=== PATIENT | male | born 1955 | race Caucasian/White ===

== ENCOUNTER → 2020-12-26 12:18 | Outpatient (CLI) | payer MEDICARE, OTHER, SELFPAY ==
--- NOTE | ~2020-12-26 | DEXA_ITS ---
Bone Density Report Name: Benjy Gale Age: 65 Sex: Male Ethnicity: White Date of : 1955 Indication: height loss; prior fracture; Referring Provider: Emilia Salazar Study: Bone densitometry was performed. Exam Date: December 26, 2020 Accession number: [id number] Bone Density: Region BMD T-score Z-score Classification AP Spine (L1, L2) 1.374 2.9 3.7 Normal Femoral Neck (Left) 0.985 0.4 1.5 Normal Total Hip (Left) 1.157 0.8 1.4 Normal Femoral Neck (Right) 0.962 0.2 1.3 Normal Total Hip (Right) 1.133 0.7 1.2 Normal Total Hip Mean 1.145 0.8 1.3 Normal World Health Organization criteria for BMD impression classify patients as: Normal (T-score at or above -1.0), Osteopenia (T-score between -1.0 and -2.5), or Osteoporosis (T-score at or below -2.5). 10-year Fracture Risk: FRAX not reported because: All T-scores for Spine Total, Hip Total, Femoral Neck at or above -1.0 Clinical Information Provided by Patient: Has had a low trauma fracture Has used the following medications: Vitamin D, Calcium, Testosterone Patient maximum height was 70 No regular weight bearing exercise Drinks caffeinated beverages Impression: The patient has normal bone mass. The patient has risk factors, including: previous fracture. Discussion: BONE DENSITY IS ABOVE THE MINIMUM DESIRABLE LEVEL AT ALL SKELETAL SITES TESTED. This patient?s bone mineral density is above the minimum desirable level (T-score -1.0 or better) at all sites measured. The patient should follow a healthful lifestyle (good nutrition with adequate calcium and vitamin D, and appropriate weight-bearing exercise). Follow-Up: Consider repeating this study in 5 years or sooner if there is some new clinical indication. Reported by: [facility] on 12/26/2020 12:55:00 PM. Reviewed, dictated and finalized at location AKatherine ESPAÑA
== END ==
PROVIDERS: PCP Family Medicine; Visit Provider Internal Medicine Endocrinology, Diabetes & Metabolism
DX: M81.0 Age-related osteoporosis without current pathological fracture (principal)
CPT/HCPCS: 77080

== ENCOUNTER → 2021-03-13 12:14 | Outpatient (CLI) | payer MEDICARE, OTHER, SELFPAY ==
--- NOTE | ~2021-03-13 | XR_ITS ---
XR knee LT 2V DATE: 03/13/2021 12:36 INDICATION: Left knee pain TECHNIQUE: Standing AP and lateral views COMPARISON: 01/27/2019 left knee FINDINGS: There is severe joint space and very severe periarticular spurring of the patella and femur at the patellofemoral joint consistent with severe osteoarthritis. There is particular spurring at the lateral compartment and mild to moderate loss of height at the me dial compartment joint space. No fracture or dislocation or joint effusion, radiopaque intra-articular loose body or chondrocalcino sis is noted. IMPRESSION: Tricompartment osteophytosis, diffuse severe at the patellofemoral compartment Reviewed, dictated and finalized at location B. 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
== END ==
PROVIDERS: PCP Family Medicine; Visit Provider Nurse Practitioner Family
DX: M25.562 Pain in left knee (principal)
CPT/HCPCS: 73560

== ENCOUNTER 2021-05-04 00:16 | Day surgery (SDC) | payer MEDICARE, OTHER, SELFPAY ==
[2021-04-21 14:52] VITALS: BMI 43.5
[2021-05-04 11:10] VITALS: BP 183/79; PULSE 62; RESP 20; TEMP 37.2; O2SAT 99; BMI 43.2
[2021-05-04 11:14] LABS: Glucose Point of Care 151 mg/dl (65-105)
--- NOTE | 2021-05-04 11:25 | WPDANESEPPF ---
Anes - Initial Pre Proc Eval Procedure: Operation Date: 05/04/21 12:30 Proposed Procedures p Screening Colonoscopy - Sushil Lopez MD Date/Time: 05/04/21 11:25 Surgeon: Sushil Lopez MD Pre Op Diagnosis: family hx of colon polyps Patient Data Age: 65 Gender: M Height: 1.73 m Weight: 129 kg Last Vital Signs Temp 99.0 F 05/04/21 11:10 Pulse 62 05/04/21 11:10 Resp 20 05/04/21 11:10 BP 183/79 H 05/04/21 11:10 Pulse Ox 99 05/04/21 11:10 Allergies Allergy/AdvReac Type Severity Reaction Status Date / Time lisinopril AdvReac Mild COUGH Verified 05/04/21 11:13 Home Medications Medication Instructions Recorded Confirmed Type cetirizine 10 mg tablet 5 mg PO DAILY PRN 03/23/19 04/21/21 History gabapentin 600 mg tablet 600 mg PO DAILY 03/23/19 04/21/21 History hydrocodone 10 mg-acetaminophen 1 tablet PO Q4-6H PRN 03/23/19 04/21/21 History 300 mg tablet tadalafil 5 mg tablet 5 mg PO DAILY 03/23/19 04/21/21 History aspirin 325 mg tablet 325 mg PO DAILY 07/28/19 04/21/21 History calcium carbonate 600 mg calcium 600 mg PO BID tablet 07/28/19 04/21/21 History (1,500 mg) tablet sildenafil 25 mg tablet 25 mg PO DAILY PRN 07/28/19 04/21/21 History albuterol sulfate 90 mcg/actuation 1 puff INHALATION Q4H PRN #8.5 g 02/08/20 04/21/21 Rx aerosol inhaler melatonin 10 mg capsule 20 mg PO HS cap 04/14/20 04/21/21 History atenolol 100 mg tablet See Rx Instructions .ROUTE 04/19/20 04/21/21 Rx .COMPLEX #90 tablet testosterone cypionate 200 mg/mL 150 mg IM Q14D ea 05/31/20 04/21/21 History intramuscular kit diclofenac sodium 1 % topical gel 4 g TOPICAL QID #300 g 06/30/20 04/21/21 Rx amlodipine 10 mg tablet See Rx Instructions .ROUTE 09/26/20 04/21/21 Rx .COMPLEX #90 tablet omeprazole 20 mg capsule,delayed 20 mg PO DAILY #180 cap 10/26/20 04/21/21 Rx release simvastatin 20 mg tablet 20 mg PO DAILY #90 tablet 11/08/20 04/21/21 Rx montelukast 10 mg tablet See Rx Instructions .ROUTE 12/30/20 04/21/21 History .COMPLEX PRN tablet losartan 100 mg tablet 100 mg PO DAILY #90 tablet 01/18/21 04/21/21 Rx fenofibrate 160 mg tablet See Rx Instructions .ROUTE 02/14/21 04/21/21 Rx .COMPLEX #90 tablet escitalopram oxalate 20 mg tablet See Rx Instructions .ROUTE 02/24/21 04/21/21 Rx .COMPLEX #90 tablet hydrochlorothiazide 25 mg tablet See Rx Instructions .ROUTE 03/01/21 04/21/21 Rx .COMPLEX #90 tablet levothyroxine 50 mcg tablet 50 mcg PO DAILY #90 tablet 03/01/21 04/21/21 Rx metformin 500 mg tablet See Rx Instructions .ROUTE 03/01/21 04/21/21 Rx .COMPLEX #180 tablet terazosin 1 mg capsule 1 mg PO DAILY #90 cap 03/01/21 04/21/21 Rx baclofen 10 mg tablet 10 mg PO TID PRN #90 tablet 04/10/21 04/21/21 Rx cholecalciferol (vitamin D3) 50 mcg PO DAILY 04/21/21 04/21/21 History [Vitamin D3] Laboratory Tests 05/04/21 11:04 POC Capillary Glucose 151 mg/dl H mg/dl (65-105) Patient hx anesthesia problems: none Family hx anesthesia problems: none Results Review: All pre-operative results and documents have been reviewed as part of the pre-operative evaluation. [facility] Past Medical History Medical History Anxiety Arthritis Back pain Blood disorder Cancer Diabetes Encounter for immunization H/O thyroid disease HLD (hyperlipidemia) Hypertension Hypothyroidism Obesity Surgical History Surgical History H/O colonoscopy (~2009) Hx of cholecystectomy Family History Family History Other Alcoholism Arthritis Cancer Congestive heart failure Diabetes mellitus Family history of lung cancer Hypertension Obesity Social History Social History Second hand tobacco smoke exposure: No Alcohol intake: never Substance use: never Gender identity
--- NOTE | 2021-05-04 11:25 | WPDGICN ---
Assessment and Plan Assessment and plan (1) Colon cancer screening: Code(s): Z12.11 - Encounter for screening for malignant neoplasm of colon Status: Acute Assessment and Plan: Patient presents for screening colonoscopy. Has been 7 years since last exam. His he has a family history of colon polyps in his son. (2) Family history of colonic polyps: Code(s): Z83.71 - Family history of colonic polyps Status: Acute Assessment and Plan: Patient's son had colon polyps it for this reason father is being evaluated every 5-7 years. GI Consult Note Consult date/time: 05/04/21 11:25 HPI: Benjy Gale is a 65 year old male Presents for screening colonoscopy. Patient's current weight appetite bowel movements are normal. He denies abdominal pain. He has had no bleeding. Family history is significant that his son has had colon polyps. Patient's most recent colonoscopy 7 years ago was unremarkable. He presents today for follow-up screening exam. Review of Systems Review of Systems: All systems reviewed & are unremarkable except as noted in HPI and below PMFSH Past Medical History Medical History Anxiety Arthritis Back pain Blood disorder Cancer Diabetes Encounter for immunization H/O thyroid disease HLD (hyperlipidemia) Hypertension Hypothyroidism Obesity Surgical History Surgical History H/O colonoscopy (~2009) Hx of cholecystectomy Family History Family History Other Alcoholism Arthritis Cancer Congestive heart failure Diabetes mellitus Family history of lung cancer Hypertension Obesity Social History Social History Second hand tobacco smoke exposure: No Alcohol intake: never Substance use: never Gender identity (if verbalized by the patient): Male Meds Home Medications and Allergies Home Medications Medication Instructions Recorded Confirmed Type cetirizine 10 mg tablet 5 mg PO DAILY PRN 03/23/19 04/21/21 History gabapentin 600 mg tablet 600 mg PO DAILY 03/23/19 04/21/21 History hydrocodone 10 mg-acetaminophen 1 tablet PO Q4-6H PRN 03/23/19 04/21/21 History 300 mg tablet tadalafil 5 mg tablet 5 mg PO DAILY 03/23/19 04/21/21 History aspirin 325 mg tablet 325 mg PO DAILY 07/28/19 04/21/21 History calcium carbonate 600 mg calcium 600 mg PO BID tablet 07/28/19 04/21/21 History (1,500 mg) tablet sildenafil 25 mg tablet 25 mg PO DAILY PRN 07/28/19 04/21/21 History albuterol sulfate 90 mcg/actuation 1 puff INHALATION Q4H PRN #8.5 g 02/08/20 04/21/21 Rx aerosol inhaler melatonin 10 mg capsule 20 mg PO HS cap 04/14/20 04/21/21 History atenolol 100 mg tablet See Rx Instructions .ROUTE 04/19/20 04/21/21 Rx .COMPLEX #90 tablet testosterone cypionate 200 mg/mL 150 mg IM Q14D ea 05/31/20 04/21/21 History intramuscular kit diclofenac sodium 1 % topical gel 4 g TOPICAL QID #300 g 06/30/20 04/21/21 Rx amlodipine 10 mg tablet See Rx Instructions .ROUTE 09/26/20 04/21/21 Rx .COMPLEX #90 tablet omeprazole 20 mg capsule,delayed 20 mg PO DAILY #180 cap 10/26/20 04/21/21 Rx release simvastatin 20 mg tablet 20 mg PO DAILY #90 tablet 11/08/20 04/21/21 Rx montelukast 10 mg tablet See Rx Instructions .ROUTE 12/30/20 04/21/21 History .COMPLEX PRN tablet losartan 100 mg tablet 100 mg PO DAILY #90 tablet 01/18/21 04/21/21 Rx fenofibrate 160 mg tablet See Rx Instructions .ROUTE 02/14/21 04/21/21 Rx .COMPLEX #90 tablet escitalopram oxalate 20 mg tablet See Rx Instructions .ROUTE 02/24/21 04/21/21 Rx .COMPLEX #90 tablet hydrochlorothiazide 25 mg tablet See Rx Instructions .ROUTE 03/01/21 04/21/21 Rx .COMPLEX #90 tablet levothyroxine 50 mcg tablet 50 mcg PO DAILY #90 tablet 03/01/21 04/21/21 Rx metformin 500 mg tablet S
[2021-05-04] MEDS: LACTATED RINGERS 1,000 ML 150 ML IV CONT (11:31)
[2021-05-04 11:56] VITALS: BP 155/89; PULSE 66; RESP 24; O2SAT 97
[2021-05-04 12:06] VITALS: BP 152/93; PULSE 64; RESP 16; O2SAT 98
[2021-05-04 12:16] VITALS: BP 166/89; PULSE 64; RESP 16; O2SAT 98
== END 2021-05-04 12:39 | disposition home or self-care (01) ==
PROVIDERS: PCP Family Medicine; Visit Provider Internal Medicine Gastroenterology
PROC: 0DJD8ZZ Inspection of Lower Intestinal Tract, Via Natural or Artificial Opening Endoscopic (ICD-10-PCS; CPT 45378; principal; 2021-05-04 12:30)
DX: Z12.11 Encounter for screening for malignant neoplasm of colon (principal); K64.8 Other hemorrhoids; Z83.71 Family history of colonic polyps; I10 Essential (primary) hypertension; E11.9 Type 2 diabetes mellitus without complications; E78.5 Hyperlipidemia, unspecified; E03.9 Hypothyroidism, unspecified; F41.9 Anxiety disorder, unspecified; E66.01 Morbid (severe) obesity due to excess calories; Z68.41 Body mass index [BMI] 40.0-44.9, adult; Z79.51 Long term (current) use of inhaled steroids; Z79.84 Long term (current) use of oral hypoglycemic drugs
CPT/HCPCS: G0105; 82948; J2704; J7120

== ENCOUNTER → 2021-07-04 11:17 | Outpatient (CLI) | payer MEDICARE, OTHER, SELFPAY ==
--- NOTE | ~2021-07-04 | MR_ITS ---
EXAMINATION: MR lumbar spine wo con DATE: 07/04/2021 11:55 INDICATION: Low back pain. TECHNIQUE: Magnetic resonance imaging (MRI) of the lumbar spine was performed without intravenous con trast. Sequences included sagittal T2-weighted FSE, sagittal T2-weighted FS FSE, sagittal T1-weighted FSE, and axial T2-weighted FSE. COMPARISON: Lumbar spine radiographs 04/22/2018 FINDINGS: There is 10 degrees dextroscoliosis of thoracolumbar spine. There is 3 mm retrolisthesis of L2 on L3 and L3 on L4 and 5 mm anterolisthesis of L4 on L5. There is mild chronic anterior wedging o f T11 vertebral body. There is mildly decreased disc height at L1-L2, moderately decreased disc heigh t at L2-L3 and L3-L4, and mildly decreased disc height at L4-L5 and L5-S1 with endplate remodeling. T here are changes of posterior fusion procedure at L4-L5 with pedicle screws. The distal spinal cord s ignal intensity is normal. The conus medullaris is at T12. The following disc levels are specifically discussed: L1-L2: The disc is bulging. There is moderate bilateral facet joint osteoarthritis. There is mild lef t neural foraminal stenosis. There is mild central canal stenosis. L2-L3: The disc is bulging and has an annular fissure. There is severe bilateral facet joint osteoart hritis. There is moderate bilateral neural foraminal stenosis. There is mild central canal stenosis. L3-L4: The disc is bulging and has an annular fissure. There is severe bilateral facet joint osteoart hritis. There is moderate bilateral neural foraminal stenosis. There is mild central canal stenosis. L4-L5: The disc does not extend beyond the endplate margin. There is severe bilateral facet joint ost eoarthritis. There is mild right and moderate left neural foraminal stenosis. There is no central can al stenosis. L5-S1: The disc is bulging. There is severe right and moderate left facet joint osteoarthritis. There is mild bilateral neural foraminal stenosis. There is mild central canal stenosis. IMPRESSION: 1. Moderate lumbar spondylosis. 2. Posterior fusion procedure at L4-L5. Reviewed, dictated and finalized at location A.
== END ==
PROVIDERS: PCP Family Medicine; Visit Provider Nurse Practitioner Family
DX: M47.896 Other spondylosis, lumbar region (principal); Z98.1 Arthrodesis status
CPT/HCPCS: 72148

== ENCOUNTER → 2022-07-26 15:11 | Outpatient (CLI) | payer MEDICARE, OTHER, SELFPAY ==
--- NOTE | ~2022-07-26 | XR_ITS ---
EXAMINATION: XR abdomen/kub 1V DATE: 07/26/2022 15:41 INDICATION: Microscopic hematuria TECHNIQUE: A supine view of the abdomen on 2 radiographs was obtained. COMPARISON: Lumbar spine radiographs dated 07/14/2018 and 04/22/2018 FINDINGS: Cholecystectomy clips in right upper quadrant. Slightly more cephalad is a 4.6 x 3.3 cm region or mas s with coarse calcifications which is of indeterminate etiology but likely benign as it can be seen d ating back to the lumbar spine radiograph dated 05/11/2015. Small phlebolith in the left hemipelvis. N o other suspicious calcifications are identified in the abdomen or pelvis. Moderate amount of stool s cattered throughout the colon. No dilated gas-filled bowel to suggest obstruction. Lung bases are feli ar. Heart size is normal. Mild thoracolumbar dextroscoliosis with bridging osteophytes at multiple le vels consistent with diffuse idiopathic skeletal hyperostosis (DISH). L4-5 posterior spinal fusion wi th bilateral vertical hyun and pedicle screw fixation. IMPRESSION: 1. No evident urolithiasis. 2. 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 Could consider CT for further evaluation as clinically indicated. Reviewed, dictated and finalized at location B. IMPRESSION: 1. No evident urolithiasis. 2. 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 Could consider CT for further evaluation as clinically indicated.
== END ==
PROVIDERS: PCP Family Medicine; Visit Provider Family Medicine
DX: R31.29 Other microscopic hematuria (principal)
CPT/HCPCS: 74018

== ENCOUNTER 2022-08-25 22:21 | Emergency (ER) | payer MEDICARE, OTHER, SELFPAY ==
[2022-08-25 22:23] VITALS: BP 198/86; PULSE 71; RESP 20; TEMP 36.5; O2SAT 97
--- NOTE | 2022-08-26 00:35 | ED.GENADULT ---
HPI - General Adult General Chief complaint: Wound/Laceration Stated complaint: wounds to L leg, diabetic Time Seen by Provider: 08/26/22 00:16 Source: patient Mode of arrival: ambulatory Limitations: no limitations History of Present Illness HPI narrative: This is a 66-year-old male with PMH of diabetes type 2, HTN who presents the ED with chief complaint wounds to the left lower leg and he is concerned for infection. Patient states that he was scratched by his dog over a week ago. He has since developed some redness of the leg. Denies pain. He also states that he was working outside a few days ago in the [employer] and may have gotten into poison claire. He reports the redness around the scratch seo has not gotten worse, however there is some drainage from one of the wounds in the back of the leg. Denies any fevers, chills, nausea, vomiting. Related Data Home Medications Medication Instructions Recorded Confirmed cetirizine 10 mg tablet (Zyrtec) 5 mg PO DAILY PRN allergies 03/23/19 07/26/22 hydrocodone 10 mg-acetaminophen 1 tablet PO Q4-6H PRN Pain 03/23/19 07/26/22 300 mg tablet tadalafil 5 mg tablet (Cialis) 5 mg PO DAILY 03/23/19 07/26/22 aspirin 325 mg tablet 325 mg PO DAILY 07/28/19 07/26/22 calcium carbonate 600 mg calcium 600 mg PO BID 07/28/19 07/26/22 (1,500 mg) tablet (Calcium) sildenafil 25 mg tablet 25 mg PO DAILY PRN other 07/28/19 07/26/22 melatonin 10 mg capsule 20 mg PO HS 04/14/20 07/26/22 testosterone cypionate 200 mg/mL 150 mg IM Q14D 05/31/20 07/26/22 intramuscular kit montelukast 10 mg tablet See Rx Instructions .Route 12/30/20 07/26/22 .COMPLEX PRN SOB cholecalciferol (vitamin D3) 50 50 mcg PO DAILY 04/21/21 07/26/22 mcg (2,000 unit) capsule (Vitamin D3) Allergies Allergy/AdvReac Type Severity Reaction Status Date / Time lisinopril AdvReac Mild COUGH Verified 07/26/22 14:28 Review of Systems Review of Systems: CONSTITUTIONAL: Denies fever, chills, or sweats. EYES: Denies visual changes, redness, or discharge. ENT: Denies rhinorrhea, congestion, sore throat, or otalgia. CARDIOVASCULAR: Denies chest pain, palpitations, or edema. RESPIRATORY: Denies cough or dyspnea. GASTROINTESTINAL: Denies abdominal pain, nausea, vomiting, or diarrhea. GENITOURINARY: Denies dysuria or hematuria. SKIN: See HPI MUSCULOSKELETAL: Denies back pain, joint pain, or myalgia. NEUROLOGIC: Denies headache, numbness, dizziness, or weakness. PSYCHIATRIC: Denies anxiety or depression. [facility] Past Medical History Medical History Anxiety Arthritis Back pain Blood disorder Callus of toe Cancer Diabetes Encounter for immunization H/O thyroid disease HLD (hyperlipidemia) Hypertension Hypothyroidism Obesity Peripheral neuropathy Surgical History Surgical History H/O colonoscopy (~2009) Hx of cholecystectomy Family History Family History Other Alcoholism Arthritis Cancer Congestive heart failure Diabetes mellitus Family history of lung cancer Hypertension Obesity Social History Social History Smoking status: Never smoker Second hand tobacco smoke exposure: No Alcohol intake: never Substance use: never Substance use type: does not use Lack of Transportation: No Lack of Food: Never True Current Housing: I Have Housing Concerned About Future Housing: No Difficulty Paying Gas/Electric Bills: No Difficulty Paying for Meds: No Currently Unemployed: No Education: Trade/Vocational Certificate Difficulty w/ Childcare or Family Care: No Living arrangements: with family Occupation/Education: retired Gender identity (if verbalized by the patient): Male Spiritual care concerns: No Agree to blood products: Yes Exam Narra
[2022-08-26 00:59] LABS: Glucose Point of Care 139 mg/dl (65-105)
[2022-08-26 01:04] VITALS: BP 150/88; PULSE 77; RESP 20; O2SAT 99
[2022-08-26] MEDS: CLINDAMYCIN HCL 150 MG CAP 450 MG PO (01:32)
== END 2022-08-26 01:44 | disposition home or self-care (01) ==
PROVIDERS: Emergency Provider Physician Assistant; PCP Family Medicine
DX: L03.116 Cellulitis of left lower limb (principal); I10 Essential (primary) hypertension; E78.5 Hyperlipidemia, unspecified; E03.9 Hypothyroidism, unspecified; E11.42 Type 2 diabetes mellitus with diabetic polyneuropathy; F41.9 Anxiety disorder, unspecified; E66.9 Obesity, unspecified; Z68.41 Body mass index [BMI] 40.0-44.9, adult; Z79.82 Long term (current) use of aspirin; Z79.84 Long term (current) use of oral hypoglycemic drugs; Z79.51 Long term (current) use of inhaled steroids
CPT/HCPCS: 82948; 87070; 87205; 99283; A9270

== ENCOUNTER 2024-02-10 16:22 | Outpatient (CLI) | payer MEDICARE, OTHER, SELFPAY ==
--- NOTE | ~2024-02-10 | XR_ITS ---
EXAMINATION: XR hand RT min 3V DATE: 02/10/2024 17:06 INDICATION: Localized swelling, mass and lump, right hand. TECHNIQUE: 3 views of right hand were obtained. COMPARISON: None. FINDINGS: Alignment is normal. No fracture. There is severe osteoarthritis of triscaphe joint and fir st carpometacarpal joint. There is mild osteoarthritis of most of the metacarpophalangeal joints and interphalangeal joints. There is moderate osteoarthritis of second and third metacarpophalangeal join ts and second distal interphalangeal joint. IMPRESSION: 1. Polyarticular osteoarthritis. 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
[2024-02-10 17:53] LABS: Alanine Aminotransferase 73 U/L (6-50); Alkaline Phosphatase 57 U/L (38-126); Anion Gap 8 mmol/L (4-12); Aspartate Amino Transferase 76 U/L (17-59); Bilirubin,Total 0.8 mg/dL (0.2-1.3); Blood Urea Nitrogen 28 mg/dL (9-20); Calcium 8.9 mg/dL (8.4-10.2); Carbon Dioxide 26 mmol/L (22-30); Chloride 105 mmol/L (98-107); Estimated Glomerular Filt Rate > 60; Glucose 164 mg/dL (65-110); Potassium 3.4 mmol/L (3.4-5.0); Sodium 139 mmol/L (137-145)
== END 2024-02-10 16:23 | disposition home or self-care (01) ==
LOC: ANHLAB 16:28
PROVIDERS: PCP Family Medicine; Visit Provider Family Medicine
DX: G56.21 Lesion of ulnar nerve, right upper limb (principal); M19.041 Primary osteoarthritis, right hand; G56.03 Carpal tunnel syndrome, bilateral upper limbs; R74.8 Abnormal levels of other serum enzymes; E11.9 Type 2 diabetes mellitus without complications
CPT/HCPCS: 36415; 73130; 80048; 80076

== ENCOUNTER 2024-03-11 14:48 | Outpatient (CLI) | payer MEDICARE, OTHER, SELFPAY ==
[2024-03-11 15:48] LABS: Hematocrit 34.7 % (42.0-52.0); Hemoglobin 11.3 g/dL (14.0-18.0); Mean Corpuscular HGB Conc 32.6 g/dl (32-36); Mean Corpuscular Hemoglobin 30.2 pg (26-34); Mean Corpuscular Volume 92.8 fl (80-100); Mean Platelet Volume 9.9 fl (7.4-10.4); Platelet Count Result 226 k/mm3 (150-375); Red Blood Count 3.74 M/mm3 (4.6-6.20); Red Cell Distribution Width 17.3 % (11.5-14.5); White Blood Count 5.7 K/mm3 (4.5-10.0)
[2024-03-11 16:18] LABS: Immunoglobulin G 1337 mg/dL (700-1600)
[2024-03-11 16:26] LABS: Iron 55 ug/dL (49-181)
[2024-03-11 16:35] LABS: Percent Iron Saturation 16 % (20-50)
[2024-03-12 08:24] LABS: Alpha-1-Antitrypsin, QN 192 mg/dL (83-199); Ceruloplasmin 22 mg/dL (14-30)
[2024-03-12 15:38] LABS: GGT 30 U/L (3-70)
[2024-03-18 05:29] LABS: LKM 1 Antibody <=20.0 U (<=20.0)
[2024-03-18 22:09] LABS: Actin Antibody (IgG) <20 U (<20)
[2024-03-19 14:28] LABS: Mitochondrial (M2) Ab (IgG) <20.0 U
[2024-03-23 13:13] LABS: ALT 32 U/L (9-46); Alpha-2-Macroglobulin 260 mg/dL (106-279); Apolipoprotein A1 124 mg/dL (94-176); Fibrosis Score 0.66; Fibrosis Stage F3; GGT 32 U/L (3-70); Haptoglobin 67 mg/dL (43-212); Necroinflammat Act Grade A0-A1; Reference ID 5266955; Total Bilirubin 0.6 mg/dL (0.2-1.2)
== END 2024-03-11 14:49 | disposition home or self-care (01) ==
PROVIDERS: PCP Family Medicine; Visit Provider Nurse Practitioner
DX: R74.8 Abnormal levels of other serum enzymes (principal)
CPT/HCPCS: 36415; 81596; 82103; 82390; 82728; 82784; 82977; 83520; 83540; 83550; 85027; 86038; 86039; 86364; 86376

== ENCOUNTER 2024-03-23 12:39 | Outpatient (CLI) | payer MEDICARE, OTHER, SELFPAY ==
--- NOTE | 2024-03-23 14:20 | NEURO_ITS ---
Impression: # Complains of numbness of hands, right more than left. Known diabetic. ? # Bilateral Carpal Tunnel Syndrome, left more than right. ? 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 ? 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 # Abnormal needle/EMG exam. Nerve Conduction Studies Anti Sensory Summary Table ?Stim Site NR Peak (ms) P-T Amp (?V) Site1 Site2 Delta-P (ms) Dist (cm) Matt (m/s) Left Median Anti Sensory (2-3nd Digit) Wrist ? 5.6 9.4 Wrist 2-3nd Digit 5.6 14.0 25 Wrist ? 6.1 18.0 Wrist 2-3nd Digit 5.6 14.0 25 Right Median Anti Sensory (2-3nd Digit) Wrist ? 4.1 22.3 Wrist 2-3nd Digit 4.1 14.0 34 Wrist ? 4.0 35.1 Wrist 2-3nd Digit 4.1 14.0 34 Left Radial Anti Sensory (Base 1st Digit) Wrist ? 1.8 37.3 Wrist Base 1st Digit 1.8 0.0 Right Radial Anti Sensory (Base 1st Digit) Wrist ? 2.6 11.0 Wrist Base 1st Digit 2.6 0.0 Left Ulnar Anti Sensory (5th Digit) Wrist ? 2.9 38.6 Wrist 5th Digit 2.9 14.0 48 Right Ulnar Anti Sensory (5th Digit) Wrist ? 2.9 21.2 Wrist 5th Digit 2.9 14.0 48 Motor Summary Table ?Stim Site NR Onset (ms) O-P Amp (mV) Site1 Site2 Delta-0 (ms) Dist (cm) Matt (m/s) Left Median Motor (Abd Poll Brev) Wrist ? 6.3 1.6 Elbow Wrist 5.3 30.0 57 Elbow ? 11.6 2.0 Right Median Motor (Abd Poll Brev) Wrist ? 4.8 1.9 Elbow Wrist 5.8 29.0 50 Elbow ? 10.6 1.6 Left Ulnar Motor (Abd Dig Minimi) Wrist ? 2.8 5.5 A Elbow Wrist 8.0 32.0 40 A Elbow ? 10.8 2.4 B Elbow Wrist 4.7 22.0 47 B Elbow ? 7.5 0.3 Right Ulnar Motor (Abd Dig Minimi) Wrist ? 3.5 2.1 A Elbow Wrist 0.0 A Elbow NR B Elbow Wrist 3.8 21.0 55 B Elbow ? 7.3 2.1 F Wave Studies ?NR F-Lat (ms) L-R F-Lat (ms) Left Median (Mrkrs) (Abd Poll Brev) ? 33.00 0.24 Right Median (Mrkrs) (Abd Poll Brev) ? 32.77 0.24 Left Ulnar (Mrkrs) (Abd Dig Min) ? 33.31 1.81 Right Ulnar (Mrkrs) (Abd Dig Min) ? 31.50 1.81 EMG ?Side Muscle Nerve Root Ins Act Fibs Amp Dur Recrt Comment Right 1stDorInt Ulnar C8-T1 Nml Nml Nml >12ms +4 Right Ext Indicis Radial (Post Int) C7-8 Nml Nml Nml Nml Nml Right Ext Digitorum Radial (Post Int) C7-8 Nml Nml Nml Nml Nml Right BrachioRad Radial C5-6 Nml Nml Nml Nml Nml Right PronatorTeres Median C6-7 Nml Nml Nml Nml Nml Right Abd Poll Brev Median C8-T1 Nml Nml Nml >12ms +1 Right ABD Dig Min Ulnar C8-T1 Nml Nml Nml >12ms +3 Left 1stDorInt Ulnar C8-T1 Nml Nml Nml >12ms +4 Left Ext Indicis Radial (Post Int) C7-8 Nml Nml Nml Nml Nml Left Ext Digitorum Radial (Post Int) C7-8 Nml Nml Nml Nml Nml Left BrachioRad Radial C5-6 Nml Nml Nml Nml Nml Left PronatorTeres Median C6-7 Nml Nml Nml Nml Nml Left Abd Poll Brev Median C8-T1 Nml Nml Nml >12ms +2 Left ABD Dig Min Ulnar C8-T1 Nml Nml Nml >12ms +3 Right Biceps Musculocut C5-6 Nml Nml Nml Nml Nml Right Triceps Radial C6-7-8 Nml Nml Nml Nml Nml Right Deltoid Axillary C5-6 Nml Nml Nml Nml Nml Left Biceps Musculocut C5-6 Nml Nml Nml Nml Nml Left Triceps Radial C6-7-8 Nml Nml Nml Nml Nml Left Deltoid Axillary C5-6 Nml Nml Nml Nml Nml MTDD
== END 2024-03-23 12:40 | disposition home or self-care (01) ==
LOC: ANHNEURO 12:40
PROVIDERS: PCP Family Medicine; Visit Provider Plastic Surgery
DX: G56.03 Carpal tunnel syndrome, bilateral upper limbs (principal); G56.23 Lesion of ulnar nerve, bilateral upper limbs; E11.9 Type 2 diabetes mellitus without complications; R94.131 Abnormal electromyogram [EMG]
CPT/HCPCS: 95886; 95911

== ENCOUNTER 2024-04-21 13:47 | Emergency (ER) | payer MEDICARE, OTHER, SELFPAY ==
--- NOTE | 2024-04-21 13:50 | ED.URI ---
HPI - URI/Sore Throat General Chief Complaint: Nausea/Vomiting/Diarrhea Stated Complaint: Diarrhea/Sinus/Weakness Time Seen by Provider: 04/21/24 13:50 Source: patient Mode of arrival: ambulatory Limitations: no limitations History of Present Illness HPI Narrative: Benjy is a 68-year-old male patient presenting to the clinic today with complaints of diarrhea, sinus congestion, and feeling weak x2 days. States he has had 2 episodes of diarrhea. Has taken some Pepto for this. Reports some cough and congestion. Denies any vomiting or abdominal pain. He denies any fever MD elicited complaint: nasal congestion and other (Weakness, diarrhea) Related Data Home Medications ?Medication ?Instructions ?Recorded ?Confirmed ?Last Taken ?Type cetirizine 10 mg tablet (Zyrtec) 5 mg PO DAILY PRN allergies 03/23/19 03/11/24 05/03/21 History hydrocodone 10 mg-acetaminophen 1 tablet PO Q4-6H PRN Pain 03/23/19 03/11/24 05/03/21 History 300 mg tablet tadalafil 5 mg tablet (Cialis) 5 mg PO DAILY 03/23/19 03/11/24 05/03/21 History aspirin 325 mg tablet 325 mg PO DAILY 07/28/19 03/11/24 05/03/21 History calcium carbonate (Calcium 600) 600 mg PO BID 07/28/19 03/11/24 05/03/21 History melatonin 10 mg capsule 20 mg PO HS 04/14/20 03/11/24 05/03/21 History montelukast 10 mg tablet See Rx Instructions .Route 12/30/20 03/11/24 05/03/21 History .COMPLEX PRN SOB cholecalciferol (vitamin D3) 50 50 mcg PO DAILY 04/21/21 03/11/24 05/03/21 History mcg (2,000 unit) capsule (Vitamin D3) folic acid 1 mg tablet 1 mg PO DAILY 08/31/22 03/11/24 Unknown History methotrexate sodium 2.5 mg tablet 12.5 mg PO WEEKLY 08/31/22 03/11/24 Unknown History testosterone cypionate 200 mg/mL 300 mg IM Q14D 08/31/22 03/11/24 Unknown History intramuscular kit Allergies Allergy/AdvReac Type Severity Reaction Status Date / Time lisinopril AdvReac Mild COUGH Verified 02/05/24 13:36 Review of Systems Review of Systems: Pertinent positives per HPI. Patient denies any fever, chills, rash, headache, visual changes, dizziness, shortness of breath, chest pain, palpitations, vomiting, constipation, abdominal pain, or any urinary issues. [facility] Past Medical History Medical History Ankylosing spondylitis Callus of toe Peripheral neuropathy Encounter for immunization H/O thyroid disease Obesity Cancer Blood disorder Back pain Arthritis Anxiety Hypothyroidism Diabetes Hypertension HLD (hyperlipidemia) Surgical History Surgical History H/O colonoscopy (~2009) Hx of cholecystectomy Family History Family History Other Alcoholism Arthritis Cancer Congestive heart failure Diabetes mellitus Family history of lung cancer Hypertension Obesity Social History Social History Smoking status: Never smoker Second hand tobacco smoke exposure: No Alcohol intake: never Substance use: never Substance use type: does not use Lack of Transportation: No Lack of Food: Never True Current Housing: I Have Housing Concerned About Future Housing: No Difficulty Paying Gas/Electric Bills: No Difficulty Paying for Meds: No Currently Unemployed: No Education: Trade/Vocational Certificate Difficulty w/ Childcare or Family Care: No Living arrangements: with family Occupation/Education: retired Gender identity (if verbalized by the patient): Male Spiritual care concerns: No Agree to blood products: Yes Comments At the time of my signature, I reviewed and agree with the nursing past medical, surgical, social, and family history. There is no relevant family history pertinent to the patient complaint. Exam Narrative: General: Well-developed, morbidly obese, acutely ill-appearing Head: Normocephalic, atraumatic Eyes: Pupils equally round and reactive to light bilaterally, EOM intact, sclera and conjunctive clear, no discharge, lids normal Ears: TMs intact and congested, ear canals clear, no drainage, grossly hearing normal. Nose: Nares patent, clear nasal discharge, no inflammation, no sinus tenderness. Mouth: Oropharynx without lesions or masses, good dentition, MMM. Postnasal drip Neck: Supple, trachea midline, no enlargement of anterior or posterior cervical nodes, no thyroid masses or goiter palpable. Cardio: Regular rate and rhythm, s1 and s2 normal, no murmur appreciated. Resp: Lung sounds diminished in the bases, no rhonchi, rales, wheezing or rubs Course Course Emergency Course: Portions of this record may have been created with voice recognition software. Level of Care: Express Care Visit Vital Signs Vital signs: Vital Signs Temperature 36.7 C 04/21/24 14:03 Pulse Rate 94 04/21/24 14:03 Respiratory Rate 20 04/21/24 14:03 Blood Pressure 135/82 04/21/24 14:03 Pulse Oximetry 95 04/21/24 14:03 Oxygen Delivery Room Air 04/21/24 14:03 Temperature 36.7 C 04/21/24 14:03 Pulse Rate 94 04/21/24 14:03 Respiratory Rate 20 04/21/24 14:03 Blood Pressure 135/82 04/21/24 14:03 Pulse Oximetry 95 04/21/24 14:03 Oxygen Delivery Room Air 04/21/24 14:03 Vital signs reviewed MDM - URI/Sore Throat MDM Narrative Medical decision making narrative: At the time of visit patient is resting comfortably on the exam table. Patient appears to be nontoxic. Labs: Influenza and COVID testing was performed. Influenza the was positive for influenza A. COVID testing was negative. Plan: Patient has influenza A. Prescription for Tamiflu was sent to the pharmacy. Risks and benefits of this medication was explained to the patient he voiced understanding I would like to have the medication. Supportive measures were discussed with the patient and they voiced understanding discharge instructions and agrees to treatment plan. Return precautions reviewed Differential Diagnosis Differential diagnosis: Likely upper respiratory infection, otitis media, sinusitis, viral infection, bronchitis, influenza, pharyngitis and other (COVID) Discharge Plan Discharge Clinical Impression: Influenza A Patient Disposition: Home, Self-Care Condition: Stable Instructions: Antibiotic Form, Influenza (ED) Additional Instructions: Take prescription medications only as prescribed-Tamiflu May take Imodium as needed for diarrhea as long as there is no blood in your stools May take Coricidin HBP for cold/flu symptoms Increase fluids and stay well hydrated Tylenol/motrin for pain/fever Flonase and OTC antihistamines as directed Vicks vapor rub to open sinuses Sinus rinses for congestion Cepacol spray, cough drops, throat lozenges, warm tea with honey/lemon, gargle salt water to soothe throat BRAT diet for diarrhea Clear liquids x 24 hours then advance as tolerated for nausea/vomiting Go to the ED if you develop a worsening in your condition- high fever not controlled by Tylenol or Motrin, dehydration, weakness, lethargy, shortness of breath, or chest pain. Follow up with your PCP in 3-5 days if symptoms persist. Patient Language: [place] Prescriptions: New oseltamivir [Tamiflu] 75 mg capsule 75 mg PO BID 5 Days Qty: 10 0RF No Action cetirizine [Zyrtec] 10 mg tablet 5 mg PO DAILY PRN (Reason: allergies) tadalafil [Cialis] 5 mg tablet 5 mg PO DAILY hydrocodone-acetaminophen 10-300 mg tablet 1 tablet PO Q4-6H PRN (Reason: Pain) testosterone cypionate 200 mg/mL kit 300 mg IM Q14D methotrexate sodium 2.5 mg tablet 12.5 mg PO WEEKLY folic acid 1 mg tablet 1 mg PO DAILY benzonatate 200 mg capsule 200 mg PO TID PRN (Reason: cough) Qty: 20 0RF aspirin 325 mg tablet 325 mg PO DAILY calcium carbonate [Calcium 600] 600 mg calcium (1,500 mg) tablet 600 mg PO BID melatonin 10 mg capsule 20 mg PO HS montelukast 10 mg tablet See Rx Instructions .ROUTE .COMPLEX PRN (Reason: SOB) Dose Instruction: TAKE 1 TABLET BY MOUTH EVERY DAY Rx Instructions: TAKE 1 TABLET BY MOUTH EVERY DAY PRN; (DME) RSV vaccine See Rx Instructions .Route .MEDSUPPLY Qty: 1 0RF Rx Instructions: Vaccination ketoconazole 2 % cream 1 applic topical BID Qty: 60 0RF hydralazine 100 mg tablet 100 mg PO BID Qty: 60 2RF (DME) True Metrix Glucose Test Strip Strip See Rx Instructions .Route Qty: 100 11RF Rx Instructions: As directed BID cholecalciferol (vitamin D3) [Vitamin D3] 50 mcg (2,000 unit) Capsule 50 mcg PO DAILY omeprazole 20 mg capsule,delayed release(DR/EC) See Rx Instructions .ROUTE .COMPLEX Qty: 90 2RF Dose Instruction: TAKE 1 CAPSULE BY MOUTH EVERY DAY Rx Instructions: TAKE 1 CAPSULE BY MOUTH EVERY DAY albuterol sulfate [Ventolin HFA] 90 mcg/actuation HFA aerosol inhaler 1 puff INHALATION Q4H PRN (Reason: shortness of breath or wheezing) Qty: 8.5 2RF diclofenac sodium 1 % gel 4 g topical QID Qty: 300 3RF Rx Instructions: apply to single knee, ankle, foot; for foot includes sole/toes/top of foot losartan [Cozaar] 100 mg tablet 100 mg PO DAILY Qty: 90 3RF terazosin 1 mg capsule See Rx Instructions .ROUTE .COMPLEX Qty: 90 3RF Dose Instruction: TAKE 1 CAPSULE BY MOUTH EVERY DAY Rx Instructions: TAKE 1 CAPSULE BY MOUTH EVERY DAY levothyroxine 50 mcg tablet 50 mcg PO DAILY Qty: 90 1RF amlodipine 10 mg tablet See Rx Instructions .ROUTE .COMPLEX Qty: 90 3RF Dose Instruction: TAKE 1 TABLET BY MOUTH EVERY DAY Rx Instructions: TAKE 1 TABLET BY MOUTH EVERY DAY simvastatin 20 mg tablet 20 mg PO DAILY Qty: 90 3RF fenofibrate 160 mg tablet See Rx Instructions .ROUTE .COMPLEX Qty: 90 1RF Dose Instruction: TAKE 1 TABLET BY MOUTH EVERY DAY Rx Instructions: TAKE 1 TABLET BY MOUTH EVERY DAY escitalopram oxalate 20 mg tablet See Rx Instructions .ROUTE .COMPLEX Qty: 90 1RF Dose Instruction: TAKE 1 TABLET BY MOUTH EVERY DAY Rx Instructions: TAKE 1 TABLET BY MOUTH EVERY DAY nystatin 100,000 unit/gram cream 1 applic topical BID Qty: 30 1RF Ozempic 0.25 mg or 0.5 mg (2 mg/3 mL) pen injector 0.5 mg subcut WEEKLY Qty: 3 0RF metformin 500 mg tablet See Rx Instructions .ROUTE .COMPLEX Qty: 180 3RF Dose Instruction: TAKE 1 TABLET TWICE A DAY Rx Instructions: TAKE 1 TABLET TWICE A DAY hydrochlorothiazide 25 mg tablet See Rx Instructions .ROUTE .COMPLEX Qty: 90 3RF Dose Instruction: TAKE 1 TABLET BY MOUTH EVERY DAY Rx Instructions: TAKE 1 TABLET BY MOUTH EVERY DAY baclofen 20 mg tablet 20 mg PO TID PRN (Reason: pain) Qty: 90 1RF Follow-up/Referrals: Rae Dumas MD [Primary Care Provider] - Time of Disposition: 14:16 Quality NIHSS Nursing Documentation ED NIHSS nursing documentation: reviewed/agree
[2024-04-21 14:03] VITALS: BP 135/82; PULSE 94; RESP 20; TEMP 36.7; O2SAT 95
[2024-04-21 14:24] LABS: EDCOVIDSCREEN Negative (Negative); EDINFLUASCREEN Positive (Negative); EDINFLUBSCREEN Negative (Negative)
== END 2024-04-21 14:30 | disposition home or self-care (01) ==
PROVIDERS: Emergency Provider Nurse Practitioner Family; PCP Family Medicine
DX: J10.1 Influenza due to other identified influenza virus with other respiratory manifestations (principal); Z20.822 Contact with and (suspected) exposure to COVID-19; E11.42 Type 2 diabetes mellitus with diabetic polyneuropathy; I10 Essential (primary) hypertension; E78.5 Hyperlipidemia, unspecified; M19.90 Unspecified osteoarthritis, unspecified site; E66.9 Obesity, unspecified; M45.9 Ankylosing spondylitis of unspecified sites in spine; Z85.9 Personal history of malignant neoplasm, unspecified; Z79.82 Long term (current) use of aspirin
CPT/HCPCS: 87426; 87804; 99213; G0463

== ENCOUNTER 2024-06-03 12:04 | Outpatient (CLI) | payer MEDICARE, OTHER, SELFPAY ==
[2024-06-03 12:52] LABS: Alanine Aminotransferase 18 U/L (6-50); Alkaline Phosphatase 52 U/L (38-126); Aspartate Amino Transferase 26 U/L (17-59); Bilirubin,Total 0.4 mg/dL (0.2-1.3)
--- OUTSIDE RECORDS SUMMARY | 2024-06-03 13:38 | XMS_ITS | Clinical Summary ---
Author Organization [facility] Address [address] [place] [address] Care Team Providers Care Adjunct Sociology Professor Name Role Phone Rae Dumas MD Primary Care Provider [phone] Allergies Active Allergy Reactions Criticality Noted Date Comments Kiet Inhibitors Cough Low Lisinopril Cough Low Quinapril Hcl Unknown 07/03/2011 Medications amLODIPine (NORVASC) 10 mg tablet daily. Active aspirin 325 mg tablet daily. Active atenolol (TENORMIN) 100 mg tablet daily Active tadalafiL (CIALIS) 5 mg tablet daily 7 Active loratadine (CLARITIN) 10 mg tablet take tablet prn 7 Active hydroCHLOROthia zide (HYDRODIURIL) 25 mg tablet daily Active HYDROcodone-kiet taminophen (NORCO) 10-325 mg per tabletIndicatio ns:Pain take tablet prn 7 Active levothyroxine (SYNTHROID, LEVOTHROID) 50 mcg tablet daily. 7 Active losartan (COZAAR) 100 mg tablet daily. Active melatonin 10 mg capsule daily 7 Active metFORMIN (GLUCOPHAGE) 500 mg tablet every 12 hours. Active simvastatin (ZOCOR) 20 mg tablet daily. 7 Active montelukast (SINGULAIR) 10 mg tablet as needed Active testosterone cypionate (DEPO-TESTOTERO NE) 200 mg/mL injection Inject into the muscle as instructed every 14 (fourteen) days 7 Active cholecalciferol (VITAMIN D-3) 5,000 unit tablet TAKE 1 TABLET 7 Active omeprazole (PriLOSEC) 20 mg capsule TAKE TWO CAPSULE BY MOUTH DAILY 3 8 Active terazosin (HYTRIN) 1 mg capsule Take 1 capsule (1 mg total) by mouth daily 3 8 Active albuterol HFA (PROVENTIL HFA,VENTOLIN HFA,PROAIR HFA) 90 mcg/actuation inhaler Inhale 2 puffs 2 (two) times a day as needed for wheezing or shortness of breath Active escitalopram (LEXAPRO) 20 mg tablet daily 0 9 Active chlorhexidine (PERIDEX) 0.12 % solution as needed Active diclofenac sodium (VOLTAREN) 1 % gel Voltaren 1 % topical gel APPLY 2 GRAMS TO AFFECTED AREA(S) 4 TIMES PER DAY Active sildenafil, antihypertensiv e, (REVATIO) 20 mg tablet sildenafil (antihypertensi ve) 20 mg tablet TAKE 1-5 TABLET BY MOUTH DAILY, NEEDED Active fenofibrate (TRIGLIDE) 160 mg tablet daily 0 Active BD Luer-Jannette Syringe 3 mL 21 gauge x 1 1/2 syringe USE ONE SYRINGE NEEDED 0 Active Narcan 4 mg/actuation spray,non-aeros ol USE DIRECTED NEEDED 0 Active baclofen (LIORESAL) 10 mg tablet 3 (three) times a day 1 Active folic acid (FOLVITE) 1 mg tablet Take 1 tablet (1,000 mcg total) by mouth daily 3 Active ketoconazole (NIZORAL) 2 % cream Apply topically 2 (two) times a day 3 Active methotrexate 2.5 mg tablet TAKE 5 TABLETS IN THE MORNING AND 5 TABS IN EVENING ONCE WEEKLY 3 Active nystatin cream Apply topically as needed 3 Active mv-min/folic/K1 /lycopen/lutein (CENTRUM SILVER MEN ORAL) Take by mouth Active glucosamine-cho ndroitin 500-400 mg tablet Take 1 tablet by mouth 2 (two) times a day 1200 MG Active acetaminophen (TYLENOL ARTHRITIS ORAL) Take by mouth daily Active Active Problems Problem Noted Date Diagnosed Date Monoclonal gammopathy 08/18/2019 Closed fracture of shaft of right humerus 2018 ED (erectile dysfunction) of organic origin 04/25 Hypothyroidism 05/08/2016 Diabetes mellitus 05/08/2016 Hyperlipidemia 05/08/2016 Hypertension 05/08/2016 Incontinence 05/08/2016 Malignant melanoma 05/08/2016 Testosterone deficiency 05/08/2016 Benign neoplasm of pituitary gland 03/15/2016 Immunizations Immunization Administration Dates Next Due Influenza, Quadrivalent, Spl it, Preservative Free, Intramuscular 12/25/2017 Influenza, Trivalent, Preser vative Free, Intramuscular 11/23/2016,02/23/2016,12/24/2015,12/20 Pneumococcal Conjugate PCV 13 01/16/2019 Surgical History Surgery Date Site/Laterality Comments NM CHOLECYSTECTOMY KNEE SURGERY ACHILLES TENDON REPAIR 03/25/2018 - 03/24/2019 POSTERIOR SPINAL FUSION Medical History Medical History Date Comments Arthritis Cancer (HCC) Cerebral palsy (HCC) Diabetes mellitus (HCC) Neuropathy in diabetes (HCC) Gastric reflux Hypercholesteremia Hypertension Sleep apnea Hypogonadism male 2018 Skin cancer (melanoma) (HCC) Benign tumor of pituitary gland (HCC) Abnormal gait Family History Medical History Relation Name Comments Alcohol abuse Brother Heart disease Brother Hypertension Father Arthritis Mother Cancer Mother Diabetes Mother Heart disease Mother Heart disease Sister Relation Name Status Comments Brother Father Mother Sister Social History Tobacco Use Types Packs/Day Years Used Date Smoking Tobacco: Never Passive Smoke Exposure: Never Smokeless Tobacco: Never Tobacco Cessation:Counseling Given: Not Answered Alcohol Use Standard Drinks/Week Comments Yes 0 (1 standard drink = 0.6 oz pur e alcohol) social Overall Financial Resource Strain (CARDIA) Answe r Date Recorded Difficulty of Paying Living Expenses Patient dec lined 11/03/2018 Hunger Vital Sign Answer Date Recorded Worried About Running Out of Food in the Last Ye ar Patient declined 11/03/2018 Ran Out of Food in the Last Year Patient decline d 11/03/2018 PRAPARE - Transportation Answer Date Re corded Lack of Transportation (Medical) Patient decline d 11/03/2018 Lack of Transportation (Non-Medical) Patient dec lined 11/03/2018 Sex and Gender Information Value Date Recorded Sex Assigned at Not on file 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 Gender Identity Not on file Sexual Orientation Not on file Occupation Industry Job Start Date Job End Date Retired Not on file Not on file Not on file Obstetrics History Last Filed Vital Signs Vital Sign Reading Time Taken Comments Blood Pressure 172/78 11/05/2023 1:26 PM CDT Pulse 66 11/05/2023 1:23 PM CDT Temperature 36.6 C (97.9 F) 11/05/2023 1:23 PM CDT Respiratory Rate - - Oxygen Saturation 96% 11/05/2023 1:23 PM CDT Inhaled Oxygen Concentration - - Weight 129.9 kg (286 lb 6.4 oz) 11/05/2023 1:23 PM CDT Height 172.7 cm (5' 8 ) 11/05/2023 1:23 PM CDT Body Mass Index 43.55 11/05/2023 1:23 PM CDT Plan of Treatment Health Maintenance Due Date Last Done Comments Albumin Creatinine Ratio, Urine 1953 Colon Cancer Screening-Colonoscopy 1953 Depression Screening 1953 Fall Risk Assessment 1953 Hemoglobin A1C 1953 Hepatitis C Screening 1953 Dilated Eye Exam 1953 Foot Exam 1953 Lipid Panel 1953 DTaP/Tdap/Td Vaccine (1 - Tdap) 1964 Hepatitis B Screening 10/18/1971 Zoster Vaccine (1 of 2) 1972 Well Visit 65+ 2018 Pneumococcal vaccine 65+ (2 of 2 - PPSV23) 03/13/2019 01/16/2019 Influenza Vaccine (#1) 2023 8, 11/23/2016, 02/23/2016, Additional history exists eGFR 11/04/2024 11/05/2023, 08/0 10/2022, 09/05/2021, Additional history exists Medical Devices Implanted Type Area Museum Service Scheduler Device Identifier Shelf Expiration Date Model / Serial / Lot Lumbar Spine Instrumentation Implanted: 6 (Quantity not on file) Spine Lumbar Procedures Procedure Name Priority Date/Time Associated Diagnosis Comments EGFR Routine 11/05/2023 1:02 PM CDT Monoclonal gammopathy from Last 3 Months or Most Recently Relevant to Health Maintenance Results * eGFR (11/05/2023 1:02 PM CDT) eGFR 89 >=60 mL/min/1. 73 m2 Comment: Interpretive Data Reference Interval Normal >/= 90 mL/min/1.73m2 Mildly decreased* 60 - 89 mL/min/1.73m2 Mildly to moderately decreased 45 - 59 mL/min/1.73m2 Moderately to severely decreased 30 - 44 mL/min/1.73m2 Severely decreased 15 - 29 mL/min/1.73m2 Kidney Failure < 15 mL/min/1.73m2 *Relative to young adult level Estimated glomerular filtration rate is determined by the 2020 CKD-EPI equation recommended by the National Kidney Foundation (A Unifying Approach to GFR Estimation: Recommendations of the NKF-ASK Task Force on Reassessing the Inclusion of Race in Diagnosing Kidney Disease, JASN 2020). The CKD-EPI equation should not be used for patients with unstable renal function and has not been validated in children and those over 70. Current interpretive data was last reviewed 2021. Blood 11/05/2023 1:02 PM CDT 11/05/2023 3:44 PM CDT Keisha Richmond MD LAB BLOOD ORDERABLES Final R esult [facility] Department of Laboratories [place], [place] [id number] from Last 3 Months or Most Recently Relevant to Health Maintenance Insurance MEDICARE [employer] [place] MEDICARE [facility] Address: [address] [address] COMMERCIAL [employer] [place] MEDICARE [employer] [facility] Care Teams Adjunct Sociology Professor Relationship Specialty Start Date End Date Rae Dumas MD PCP - General 01/03/17
--- OUTSIDE RECORDS SUMMARY | 2024-06-03 13:38 | XMS_ITS | Referral Summary ---
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 The CKD-EPI equation should not be used for patients with unstable renal function and has not been validated in children and those over 70. Current interpretive data was last reviewed 2021. Blood 11/05/2023 1:02 PM CDT 11/05/2023 3:44 PM CDT Keisha Richmond MD LAB BLOOD ORDERABLES Final R esult [facility] Department [place] [address] from Last 3 Months or Most Recently Relevant to Health Maintenance Insurance MEDICARE [facility] MEDICARE [employer] MEDICARE [place] [employer] Care Teams Program Management Intern Relationship Specialty Start Date End Date Rae Dumas MD PCP - General 01/03/17
== END 2024-06-03 12:05 | disposition home or self-care (01) ==
PROVIDERS: PCP Family Medicine; Visit Provider Nurse Practitioner
DX: K75.81 Nonalcoholic steatohepatitis (NASH) (principal); R74.8 Abnormal levels of other serum enzymes
CPT/HCPCS: 36415; 80076

== ENCOUNTER 2024-06-25 11:06 | Outpatient (CLI) | payer MEDICARE, OTHER, SELFPAY ==
--- NOTE | ~2024-06-25 | US_ITS ---
Limited Abdominal Sonogram: Real-time sonographic imaging of the right upper quadrant was performed. Clinical History: Abnormal serum enzyme levels Findings: The liver appears echogenic, with no evidence of mass lesion or bile duct dilatation. It m easures 21 cm in length. Main portal vein demonstrates normal direction of flow. The gallbladder is a bsent, compatible with prior cholecystectomy. The common bile duct measures 3 mm. The visualized archer creas, aorta, and IVC are unremarkable. Impression: Diffuse fatty infiltration of the liver, with associated hepatomegaly. Reviewed, dictated and finalized at location M. Impression: Diffuse fatty infiltration of the liver, with associated hepatomegaly.
--- OUTSIDE RECORDS SUMMARY | 2024-06-25 12:01 | XMS_ITS | Referral Summary ---
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
--- OUTSIDE RECORDS SUMMARY | 2024-06-25 12:01 | XMS_ITS | Clinical Summary ---
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 Department of Laboratories [place], [place] [id number] from Last 3 Months or Most Recently Relevant to Health Maintenance Insurance MEDICARE [employer] [place] MEDICARE COMM[employer]CIAL [employer] [place] [address] [employer] [facility] Care Teams Manager Floral Relationship Specialty Start Date End Date Rae Dumas MD PCP - General 01/03/17
== END 2024-06-25 11:07 | disposition home or self-care (01) ==
PROVIDERS: PCP Family Medicine; Visit Provider Nurse Practitioner
DX: R74.8 Abnormal levels of other serum enzymes (principal)
CPT/HCPCS: 76705

== ENCOUNTER 2024-10-05 12:43 | Outpatient (CLI) | payer MEDICARE, OTHER, SELFPAY ==
--- OUTSIDE RECORDS SUMMARY | 2024-10-05 12:53 | XMS_ITS | Referral Summary ---
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 Gender Identity Not on file Sexual Orientation [...] 1:23 PM CDT Height 172.7 cm (5' 8) 11/05/2023 1:23 PM CDT Body Mass Index 43.55 11/05/2023 1:23 PM CDT Plan of Treatment Not on file Medical Devices Implanted Type Area Digester Cook Device Identifier Shelf Expiration Date Model / [...] LAB BLOOD ORDERABLES Final R esult [facility] One [facility] Department [place] [address] from Last 3 Months or Most Recently Relevant to Health Maintenance Insurance MEDICARE [facility] MEDICARE COMMERCIAL [employer]IC [employer] MEDICARE [place] [employer] Care Teams Bacteriologist Medical Relationship Specialty Start Date End Date Rae Dumas MD PCP - General 01/03/17
--- OUTSIDE RECORDS SUMMARY | 2024-10-05 12:53 | XMS_ITS | Clinical Summary ---
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 Gender Identity Not on file Sexual Orientation [...] (2 of 2 - PPSV23) 03/13/2019 01/16/2019 eGFR 11/04/2024 11/05/2023, 08/0 10/2022, 09/05/2021, Additional history exists Influenza Vaccine (Season Ended) 2024 12/25/2017, 11/23/2016, 02/23/2016, Additional history exists Medical Devices Implanted Type Area Internet Sales Director Device Identifier Shelf Expiration Date Model / [...] LAB BLOOD ORDERABLES Final R esult [facility] One [facility] Department [place] [address] from Last 3 Months or Most Recently Relevant to Health Maintenance Insurance MEDICARE [employer] [place] MEDICARE [facility] Address: [address] [address] [place] [address] COMMERCIAL GENERIC [employer] [place] MEDICARE [facility] Care Teams Health Administration Teacher Relationship Specialty Start Date End Date Rae Dumas MD PCP - General 01/03/17
[2024-10-05 13:21] LABS: Anion Gap 10 mmol/L (4-12); Blood Urea Nitrogen 25 mg/dL (9-20); Calcium 9.6 mg/dL (8.4-10.2); Carbon Dioxide 24 mmol/L (22-30); Chloride 106 mmol/L (98-107); Estimated Glomerular Filt Rate > 60; Glucose 104 mg/dL (65-110); Potassium 3.8 mmol/L (3.4-5.0); Sodium 140 mmol/L (137-145)
== END 2024-10-05 12:44 | disposition home or self-care (01) ==
LOC: ANHSURGERY 12:51
PROVIDERS: Anesthesiology; PCP Family Medicine; Visit Provider Plastic Surgery
DX: Z01.818 Encounter for other preprocedural examination (principal); E11.9 Type 2 diabetes mellitus without complications
CPT/HCPCS: 36415; 80048

== ENCOUNTER 2024-10-07 01:12 | Day surgery (SDC) | payer MEDICARE, OTHER, SELFPAY ==
--- NOTE | 2024-10-02 14:01 | PC.NURSE ---
Report to the Outpatient Waiting Room, entrance under the green pavilion located off [facility], at time _9:30 AM on date _10/07/24 . Planned Procedure Time: __11:30 AM .? Time changes happen often and if your time is changed the preop area will call you the afternoon before. - You and your visitor will be asked to self-screen and do not enter if you have any COVID symptoms. Please call surgeon if you need to reschedule. - A mask is optional within the hospital at this time. NOTHING TO DRINK 8 HOURS PRIOR TO SURGERY PER DR WHITE - No food from midnight until time of surgery and no smoking, or chewing tobacco (or any form of nicotine). No chewing gum, candy or mints. Take only the following medications with a SIP of water on the morning of surgery: INHALER IF NEEDED,AMLODIPINE,ESCITALOPRAM,HYDRALAZINE,HYDROCODONE IF NEEDED FOR PAIN,LEVOTHYROXINE DO NOT STOP ANY OF YOUR OTHER PRESCRIPTION MEDICATIONS PRIOR TO SURGERY EXCEPT THE FOLLOWING Hold all vitamins and supplements for 3 days per anesthesiologist.LAST DOSE 10/03/24 Medications to discontinue per physician ASPIRIN__PER DR WHITE Date to take last dose Please no make-up, nail thai, hairspray, perfume, deodorant, or body powder the day of surgery.? No jewelry (including any body piercings) or valuables the day of surgery, leave them at home.? Please take a shower or bath the night before, or the morning of, surgery with an antibacterial soap.? Wear comfortable, loose fitting clothing.? Children are encouraged to wear pajamas. - Jewelry must be removed prior to entering the operating room.? Rings and piercings that are not removed may be cut off. - The hospital will not accept responsibility for valuables.? - Please leave all valuables, including medications, at home the day of surgery. If you are going home after surgery, a licensed restaurant delivery driver must drive you home.? - NO public transportation without another adult if you receive anesthesia. - We recommend that an adult stay with you for 24 hours following discharge. - We also recommend that you do not drive, make important decision, drink alcoholic beverages, or take any drugs that were not prescribed by your health care provider for at least 24 hours after your discharge time. For Pediatric surgeries, we recommend two adults accompany the child home. Follow any additional instructions given to you from your surgeon. Telephone instructions given to __PATIENT and asked if any additional questions and then verbalized understanding. Patient advised to call surgeon office or pre surgery nurse liaison [phone] if any additional questions.
[2024-10-02 14:20] VITALS: BMI 37.2
--- OUTSIDE RECORDS SUMMARY | 2024-10-07 01:17 | XMS_ITS | Clinical Summary ---
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 Gender Identity Not on file Sexual Orientation [...] history exists Medical Devices Implanted Type Area Academic Support Coordinator Device Identifier Shelf Expiration Date Model / [...] LAB BLOOD ORDERABLES Final R esult [facility] One [facility] Department [place] [address] from Last 3 Months or Most Recently Relevant to Health Maintenance [place] [address] [employer] [place] MEDICARE [facility] Address: [address] [address] [place] [address] COMMERCIAL GENERIC [employer] [place] [address] [employer] [facility] Care Teams Stock Preparation Operator Relationship Specialty Start Date End Date Rae Dumas MD PCP - General 01/03/17
--- OUTSIDE RECORDS SUMMARY | 2024-10-07 01:17 | XMS_ITS | Referral Summary ---
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 Gender Identity Not on file Sexual [...] on file Medical Devices Implanted Type Area Dip Brazier Device Identifier Shelf Expiration Date Model / [...] LAB BLOOD ORDERABLES Final R esult [facility] One [facility] Department [place] [address] from Last 3 Months or Most Recently Relevant to Health Maintenance Insurance MEDICARE [facility] MEDICARE COMMERCIAL [employer] MEDICARE [place] [employer] Care Teams Physical Therapy Attendant Relationship Specialty Start Date End Date Rae Dumas MD PCP - General 01/03/17
--- NOTE | 2024-10-07 06:43 | P.OP_ITS ---
Procedure Note - Detailed Date of Procedure 10/07/24 Pre-op Diagnosis right CTS and CuTS Post-op Diagnosis Same Procedure Performed right ectr and CuTR Surgeon Neptali Adrian MD Finishing And Shipping Supervisor naina fleming pa-c Anesthesia MAC Description of Procedure INFORMED CONSENT: The patient was seen and examined and marked in the pre-op area.? The patient signed the consent form. PROCEDURE IN DETAIL:The patient taken back to OR on the stretcher in supine position. Time out performed with anesthesia, surgeon and staff agreeing on patient's name site and surgery to be performed SCDs were placed on the lower extremities and inflated. A tourniquet was placed on {right} upper extremity and antibiotics given IV After anesthesia administered sedation I injected {10}cc 1%lido with epi and 0.5% marcaine plain at the operative sites The?{right upper extremity}?was prepped and draped in sterile fashion the??{right upper extremity} was? exsanguinated with Esmarch bandage and tourniquet inflated to 250mmHg I made a transverse incision in the {right} volar distal wrist crease through skin and dermis with 15 blade scalpel.? Littler scissors spread down to antebrachial fascia. A small incision was made in antebrachial fascia allowing access to Carpal tunnel. I proceeded with sequential dilation staying in line with the ring finger and hugging the hook of the hamate.? I then used the synovial elevator to free any adhesions from the underside of the transverse carpal ligament. Next I was able to insert the Microaire endoscopic carpal tunnel device with direct visualization of the transverse fibers on the monitor and proceeded with complete segmental retrograde release of the ligament in its entirety.? I irrigated with normal saline and closed with 4-0 monocryl for dermis and subcuticular closure. I next proceeded with making a longitudinal incision between two heads for flexor carpi ulnaris at end of {right} cubital tunnel with 15 blade scalpel.? Littler scissors were used to spread down to FCU fascia noting signifiantly thickened connective tissue within subq tissue and fascia.? An incision was made in FCU fascia and ulnar nerve identified exiting cubital tunnel.? I proceeded with complete retrograde release of the cubital tunnel including 7cm proximal for the intermuscular septum noting nerve was grossly compressed withing this tight tunnel.? The nerve appeared healthy with visible vaso nervorum.? There was no subluxation on full elbow range of motion. ? I irrigated with normal saline and closure with 4-0 monocryl for dermis and subcuticular. The incisions were covered with Dermabond then 4x4s, yuly, and a posterior elbow and volar wrist splint for patient safety, security and comfort and secured with penelope bandages after the tourniquet was let down noting the hand was warm and well perfused.? Patient awaken from anesthesia and transferred to [facility] in stable condition Complications - none EBL- 1cc Disposition - home in stable condition Naina Fleming PA-C was essential for positioning, retraction, closure and dressing placement G Billing Surgery - Charge Forward: Surgery Billing ([id number] same for naina adding )
--- NOTE | 2024-10-07 06:43 | WPDHPUPDATE1 ---
History and Physical Update Update Date/Time: 10/07/24 06:43 Patient seen and examined in pre-operative holding area. No interval change in medical history or symptoms. Patient recalls previous discussion of benefits and alternatives to procedure. Continues to desire to proceed with right endoscopic possible open carpal tunnel release and right cubital tunnel release. Reviewed procedure, post-op expectations and risks including but not limited to bleeding, infection, injury to tendon/nerve/vessel, decreased hand function, stiffness, RSD, no change or worsening of symptoms. I discussed the possible use of assistants and their participation in the case. Patient stated understanding and signed the consent form wishing to proceed.
[2024-10-07 09:40] VITALS: BP 209/86; PULSE 70; RESP 20; TEMP 36.5; O2SAT 98
[2024-10-07] MEDS: LACTATED RINGERS 1,000 ML 30 ML IV CONT (10:05)
[2024-10-07] MEDS: ACETAMINOPHEN 500 MG TABLET 1000 MG PO (10:09)
--- NOTE | 2024-10-07 10:16 | P.PNAN_ITS ---
Anes - Initial Pre Proc Eval Procedure: Operation Date: 10/07/24 11:30 Proposed Procedures p Right Endoscopic Carpal Tunnel Release, Possible Open, Right Cubital Tunnel Release - Neptali Adrian MD Date/Time: 10/07/24 10:16 Surgeon: Neptali Adrian MD Pre Op Diagnosis: right carpal and cubital tunnel syndrome Patient Data Age: 68 Gender: M Height: 1.73 m Weight: 111.4 kg Last Vital Signs Temp 97.7 F 10/07/24 09:40 Pulse 70 10/07/24 09:40 Resp 20 10/07/24 09:40 BP 209/86 H 10/07/24 09:40 Pulse Ox 98 10/07/24 09:40 O2 Del Method Room Air 10/07/24 09:40 Allergies Allergy/AdvReac Type Severity Reaction Status Date / Time lisinopril AdvReac Mild COUGH Verified 10/07/24 09:55 Home Medications ?Medication ?Instructions ?Recorded ?Confirmed ?Type cetirizine 10 mg tablet (Zyrtec) 5 mg PO DAILY PRN allergies 03/23/19 10/02/24 History hydrocodone 10 mg-acetaminophen 1 tablet PO Q4-6H PRN Pain 03/23/19 10/02/24 History 300 mg tablet tadalafil 5 mg tablet (Cialis) 5 mg PO DAILY 03/23/19 10/02/24 History aspirin 325 mg tablet 325 mg PO DAILY 07/28/19 10/02/24 History calcium carbonate (Calcium 600) 600 mg PO BID 07/28/19 10/02/24 History melatonin 10 mg capsule 20 mg PO HS 04/14/20 10/02/24 History montelukast 10 mg tablet See Rx Instructions .Route 12/30/20 10/02/24 History .COMPLEX PRN SOB cholecalciferol (vitamin D3) 50 50 mcg PO DAILY 04/21/21 10/02/24 History mcg (2,000 unit) capsule (Vitamin D3) omeprazole 20 mg capsule,delayed See Rx Instructions .Route 01/25/22 10/02/24 Rx release .COMPLEX #90 caps folic acid 1 mg tablet 1 mg PO DAILY 08/31/22 10/02/24 History testosterone cypionate 200 mg/mL 300 mg IM Q14D 08/31/22 10/02/24 History intramuscular kit RSV vaccine #1 ea 12/28/22 08/26/24 Rx diclofenac sodium 1 % topical gel 4 g topical QID #300 grams 01/14/23 10/02/24 Rx ketoconazole 2 % topical cream 1 applic topical BID #60 grams 03/19/23 10/02/24 Rx benzonatate 200 mg capsule 200 mg PO TID PRN cough #20 caps 05/13/23 10/02/24 Rx terazosin 1 mg capsule See Rx Instructions .Route 06/10/23 10/02/24 Rx .COMPLEX #90 caps levothyroxine 50 mcg tablet 50 mcg PO DAILY #90 tabs 07/12/23 10/02/24 Rx amlodipine 10 mg tablet See Rx Instructions .Route 10/19/23 10/02/24 Rx .COMPLEX #90 tabs simvastatin 20 mg tablet 20 mg PO DAILY #90 tabs 10/21/23 10/02/24 Rx blood sugar diagnostic (True #100 ea 01/01/24 08/26/24 Rx Metrix Glucose Test Strip) escitalopram oxalate 20 mg tablet See Rx Instructions .Route 01/26/24 10/02/24 Rx .COMPLEX #90 tabs fenofibrate 160 mg tablet See Rx Instructions .Route 01/26/24 10/02/24 Rx .COMPLEX #90 tabs nystatin 100,000 unit/gram topical 1 applic topical BID #30 grams 03/02/24 10/02/24 Rx cream baclofen 20 mg tablet 20 mg PO TID PRN pain #90 tabs 04/16/24 10/02/24 Rx oseltamivir 75 mg capsule (Tamiflu) 75 mg PO BID 5 days #10 caps 04/21/24 10/02/24 Rx albuterol sulfate 90 mcg/actuation 1 puff inhalation Q4H PRN 04/29/24 10/02/24 Rx aerosol inhaler (Ventolin HFA) shortness of breath or wheezing #8.5 grams resmetirom 100 mg tablet 100 mg PO DAILY #90 tabs 06/03/24 10/02/24 Rx (Rezdiffra) losartan 100 mg tablet (Cozaar) 100 mg PO DAILY #90 tabs 06/04/24 10/02/24 Rx hydralazine 100 mg tablet 100 mg PO BID #180 tabs 06/18/24 10/02/24 Rx metformin 500 mg tablet See Rx Instructions .Route 07/23/24 10/02/24 Rx .COMPLEX #180 tabs lidocaine 5 % topical patch 1 patch topical DAILY #30 ea 08/18/24 10/02/24 Rx semaglutide 2 mg/dose (8 mg/3 mL) 2 mg (0.75 mL) subcut WEEKLY #3 mL 08/18/24 0 10/02/24 Rx subcutaneous pen injector (Ozempic) hydrochlorothiazide 25 mg tablet See Rx Instructions .Route 08/24/24 10/02/24 Rx .COMPLEX #90 tabs adalimumab 40 mg/0.4 mL 40 mg subcut .EVERY 2 WKS 10/02/24 10/02/24 History subcutaneous pen kit (Humira(CF) Pen) Patient hx anesthesia problems: none Family hx anesthesia problems: none Results Review: All pre-operative results and documents have been reviewed as part of the pre- operative evaluation. REPLACED BY [facility] Past Medical History Medical History Ankylosing spondylitis Callus of toe Peripheral neuropathy Encounter for immunization H/O thyroid disease Obesity Cancer Blood disorder Back pain Arthritis Anxiety Hypothyroidism Diabetes Hypertension HLD (hyperlipidemia) Surgical History Surgical History H/O colonoscopy (~2009) Hx of cholecystectomy Family History Family History Other Alcoholism Arthritis Cancer Congestive heart failure Diabetes mellitus Family history of lung cancer Hypertension Obesity Social History Social History Smoking status: Never smoker Second hand tobacco smoke exposure: No Alcohol intake: never Substance use: never Substance use type: does not use Lack of Transportation: No Lack of Food: Never True Current Housing: I Have Housing Concerned About Future Housing: No Difficulty Paying Gas/Electric Bills: No Difficulty Paying for Meds: No Currently Unemployed: No Education: Trade/Vocational Certificate Difficulty w/ Childcare or Family Care: No Living arrangements: alone Occupation/Education: retired Gender identity (if verbalized by the patient): Male Spiritual care concerns: No Agree to blood products: Yes Anes - Eval Final PreProcedure Day of Procedure 10/07/24 10:16 Patient weight: obese Lungs: normal air movement Airway: Mallampati scale class II Neurological: alert and oriented Last oral intake: >/= 8 hours ASA classification: III Emergent: no Anesthetic plan: proceed Anesthesia type and monitoring: general GIVS and standard monitoring Results Review: All pre-operative results and documents have been reviewed as part of the pre- operative evaluation. HTN, hyperlipidemia, NORM on CPAP, DM, debility due to anky spon/CP. Informed Consent: The patient's anesthetic plan and its attendant risks and benefits were discussed with the patient/family/POA. Questions were solicited and answers provided to the satisfaction of the patient/family/POA.
[2024-10-07] MEDS: ceFAZolin 2 GM in SODIUM CHLORIDE 0.9% IV 50 ML 100 ML IVPB (10:23)
[2024-10-07] MEDS: LIDO 1%/EPINEPHRINE 1:100,000 50 ML VIAL INFILTRATE (10:37)
[2024-10-07] MEDS: BUPivacaine HCL 0.5% 10 ML AMP 5 ML INFILTRATE (10:38)
[2024-10-07 11:02] VITALS: BP 139/52; PULSE 68; RESP 16; O2SAT 97
[2024-10-07 11:32] VITALS: BP 182/83; PULSE 63
[2024-10-07 12:02] VITALS: BP 184/68; PULSE 57
== END 2024-10-07 12:24 | disposition home or self-care (01) ==
PROVIDERS: PCP Family Medicine; Visit Provider Plastic Surgery
PROC: 01N54ZZ Release Median Nerve, Percutaneous Endoscopic Approach (ICD-10-PCS; CPT 29848; principal; 2024-10-07 11:30)
DX: G56.01 Carpal tunnel syndrome, right upper limb (principal); E78.5 Hyperlipidemia, unspecified; I10 Essential (primary) hypertension; E11.9 Type 2 diabetes mellitus without complications; E03.9 Hypothyroidism, unspecified; F41.9 Anxiety disorder, unspecified; G62.9 Polyneuropathy, unspecified; M19.90 Unspecified osteoarthritis, unspecified site; G47.33 Obstructive sleep apnea (adult) (pediatric); Z99.89 Dependence on other enabling machines and devices; Z79.891 Long term (current) use of opiate analgesic; Z79.82 Long term (current) use of aspirin; Z79.51 Long term (current) use of inhaled steroids; Z79.84 Long term (current) use of oral hypoglycemic drugs; Z79.85 Long-term (current) use of injectable non-insulin antidiabetic drugs; Z79.620 Long term (current) use of immunosuppressive biologic; Z90.49 Acquired absence of other specified parts of digestive tract; Z85.9 Personal history of malignant neoplasm, unspecified; Z80.1 Family history of malignant neoplasm of trachea, bronchus and lung; Z82.49 Family history of ischemic heart disease and other diseases of the circulatory system
CPT/HCPCS: 64718; 29848; 82948; J0690; A9270; J2003; J2004; J2250; J2405; J2704; J3010; J7120